=== PATIENT | male | born 1985 | race Caucasian/White ===

== ENCOUNTER 2017-10-04 15:24 | Emergency (ER) | payer OTHER ==
[2017-10-04 15:31] VITALS: O2SAT 98
--- NOTE | 2017-10-04 15:34 | C.PDOC ---
History Of Present Illness 31 yo male come in for evaluation of Right sided lower back/buttock pain gradually developed for past 2 weeks " after was lifting heavy objects". Pt reports, pain is constant, aching with radiating down to Right leg. Pt admits, was seen by PMD 1 week ago, taking Meloxicam, topical cream without improvement. Pt also reports, some suprapubic discomfort, subjective fever. Otherwise, pt denies high fever, sore throat, drooling, dysphagia, dyspnea, cough, abd. pain, N/V/D, UTI sx, denies weakness, sensory or vascular deficits to B/L LEs. Ambulate to ED w/assistance of cane, appears in pain. Time Seen by Provider: 10/04/17 15:31 Chief Complaint (Nursing): Lower Extremity Problem/Injury History Per: Patient Onset/Duration Of Symptoms: Gradual Past Medical History Reviewed: Historical Data, Nursing Documentation, Vital Signs Vital Signs: Last Vital Signs Temp 99 F 10/04/17 17:50 Pulse 76 10/04/17 17:50 Resp 18 10/04/17 17:50 BP 118/71 10/04/17 17:50 Pulse Ox 98 10/04/17 17:50 - Medical History PMH: No Chronic Diseases Family History: States: No Known Family Hx - Social History Hx Tobacco Use: Yes Hx Alcohol Use: No Hx Substance Use: No - Immunization History Hx Tetanus Toxoid Vaccination: No Hx Influenza Vaccination: No Hx Pneumococcal Vaccination: No Review Of Systems Except As Marked, All Systems Reviewed And Found Negative. Constitutional: Positive for: Fever (subjective) ENT: Negative for: Throat Pain, Throat Swelling Cardiovascular: Negative for: Chest Pain, Palpitations Respiratory: Negative for: Cough, Shortness of Breath, Wheezing Gastrointestinal: Negative for: Nausea, Vomiting, Abdominal Pain, Diarrhea Genitourinary: Negative for: Dysuria, Incontinence, Penile Discharge, Penile Pain Musculoskeletal: Positive for: Back Pain Skin: Negative for: Lesions, Bruising Neurological: Negative for: Weakness, Numbness, Headache, Dizziness Physical Exam - Physical Exam Appears: Well, Non-toxic, No Acute Distress Skin: Normal Color, Warm, Dry, No Rash Head: Normacephalic Eye(s): bilateral: PERRL Nose: No Flaring, No Discharge Oral Mucosa: Moist, No Drooling Throat: No Erythema, No Drooling Neck: Normal ROM, Trachea Midline, Supple Cardiovascular: Rhythm Regular, No Murmur, No JVD Respiratory: No Decreased Breath Sounds, No Accessory Muscle Use, No Stridor, No Wheezing Gastrointestinal/Abdominal: Soft, Tenderness (mild suprapubic), No Distention, No Guarding, No Rebound Back: No CVA Tenderness, No Vertebral Tenderness, Paraspinal Tenderness ( diffuse right lumbar and right gluteal tenderness. No skin changes, no palpable deformity.), Straight Leg Raising (Right leg (+) at 30 degrees, Left leg (+) at 70 degrees) Extremity: Normal ROM, No Tenderness, No Calf Tenderness, No Deformity, No Swelling Neurological/Psych: Oriented x3, Normal Speech, Normal Motor, Normal Sensation, Normal Reflexes ED Course And Treatment - Laboratory Results Result Diagrams: 10/04/17 15:55 10/04/17 15:55 Lab Interpretation: Normal O2 Sat by Pulse Oximetry: 98 Pulse Ox Interpretation: Normal Progress Note: On re-eval, pt is afebrile, hemodynamically stable. Non-toxic. Ambulatory in ED with stable gait. PulseOx 98% on RA. ENT: no acute findings. Neck: Supple, (-) JVD, (-) carotid bruits B/L. Lungs: CTA B/L, BS equal B/L. Abd: benign, (-) guarding, (-) rebound. Back: (-) CVA tenderness. Neurologically intact. Blood work review and appears normal. UA review (-). Patient has clinical findings c/w Right lumbar radiculopathy/sciatica. Pt advised and ref. to F/U with PMD In 2-3 days for re-eval. return to ED if any worsening or new changes. Disposition Counseled Patient/Family Regarding: Studies Performed, Diagnosis, Need For Followup, Rx Given - Disposition Referrals: [facility] [Outside] [facility] [Provider Group] [facility] [Provider Group] Ugo Underwood MD [Staff Provider] - Disposition: HOME/ ROUTINE Disposition Time: 17:12 Condition: STABLE Additional Instructions: Take medication as prescribed Light duty to lower back, avoid heavy lifting, bending forward, etc for 1-2 weeks Follow up with PMD, Pain management for further evaluation and treatment return to ED if any worsening or new changes. Prescriptions: Gabapentin [Neurontin] 300 mg PO HS #10 cap Methocarbamol [Robaxin] 500 mg PO TID #14 tab Prednisone [Deltasone] 40 mg PO DAILY #6 tablet Instructions: Sciatica, Radiculopathy Forms: [facility] (German) - Clinical Impression Clinical Impression: Lumbar radiculopathy, Sciatica
[2017-10-04] MEDS ORDERED: Sodium Chloride 0.9% 1,000 ML IV ONE (15:39)
[2017-10-04] MEDS ORDERED: Morphine 4 MG/ML VIAL ONE (15:57)
[2017-10-04 16:00] LABS: BASO # 0.1 K/uL (0.0-0.2); BASO % 0.6 % (0.0-2.0); EOS # 0.1 K/uL (0.0-0.7); EOS % 1.1 % (0.0-4.0); HEMOGLOBIN 14.4 g/dL (12.0-18.0); LYMPH % 19.9 % (20.0-40.0); MEAN CELL VOLUME 80.3 fL (80.0-94.0); MEAN CORPUSCULAR HEMOGLOBIN 26.9 pg (27.0-31.0); MEAN CORPUSCULAR HGB CONC 33.6 g/dL (33.0-37.0); MEAN PLATELET VOLUME 7.6 fL (7.2-11.7); MONO # 0.9 K/uL (0.0-0.8); MONO % 8.3 % (0.0-10.0); NEUT # 7.2 K/uL (1.8-7.0); NEUT % 70.1 % (50.0-75.0); NRBC % 0.1 % (0.0-2.0); RBC 5.33 Mil/uL (4.40-5.90); RED CELL DISTRIBUTION WIDTH 14.2 % (11.5-14.5); WHITE BLOOD COUNT 10.3 K/uL (4.8-10.8)
[2017-10-04 16:13] LABS: ALB/GLOB RATIO 1.1 (1.0-2.1); ALBUMIN 3.9 g/dL (3.5-5.0); ALT/SGPT 42 U/L (21-72); AST/SGOT 37 U/L (17-59); BLOOD UREA NITROGEN 13 mg/dL (9-20); GFR AFRICAN-AMERICAN > 60; GFR NON-AFRICAN AMERICAN > 60; LIPASE 32 U/L (23-300)
[2017-10-04 17:42] LABS: SQUAMOUS EPITHIAL < 1 /hpf (0-5); URINE BILIRUBIN NEGATIVE (NEGATIVE); URINE BLOOD NEGATIVE (NEGATIVE); URINE CLARITY Clear (Clear); URINE COLOR Yellow (YELLOW); URINE GLUCOSE (UA) NORMAL (Normal); URINE LEUKOCYTE ESTERASE NEG Leu/uL (Negative); URINE PROTEIN NEGATIVE (NEGATIVE)
[2017-10-04 17:51] VITALS: BP 118/71; PULSE 76; RESP 18; TEMP 99
== END 2017-10-04 18:10 | disposition home or self-care (01) ==
LOC: C.ER 15:24
DX: M54.16 Radiculopathy, lumbar region (principal); M54.31 Sciatica, right side
CPT/HCPCS: 80053; 81001; 83690; 85025; 96361; 96374; 96375; 99283; J2270; J2930; J7030

== ENCOUNTER 2017-10-13 09:33 | Emergency (ER) | payer OTHER ==
[2017-10-13 09:50] VITALS: BP 129/76; PULSE 90; RESP 16; TEMP 98; O2SAT 99
--- NOTE | 2017-10-13 12:01 | C.PDOC ---
History Of Present Illness 31 year old male patient presents to the ER with c/o back pain for a little more than x1 week. Patient was last seen in the ER last week for the same complaint after injury. Patient reports pain is worse today. Patient notes he has a f/u with worker compensation doctor scheduled today. Patient denies bladder pain or leg pain. Time Seen by Provider: 10/13/17 09:51 Chief Complaint (Nursing): Back Pain History Per: Patient History/Exam Limitations: no limitations Onset/Duration Of Symptoms: Days (x1.5 weeks) Current Symptoms Are (Timing): Still Present Previous Symptoms: Back Pain Past Medical History Reviewed: Historical Data, Nursing Documentation, Vital Signs Vital Signs: Last Vital Signs Temp 98 F 10/13/17 09:48 Pulse 90 10/13/17 09:48 Resp 16 10/13/17 09:48 BP 129/76 10/13/17 09:48 Pulse Ox 99 10/13/17 18:39 Family History: States: No Known Family Hx - Social History Hx Tobacco Use: Yes Hx Alcohol Use: No Hx Substance Use: No - Immunization History Hx Tetanus Toxoid Vaccination: No Hx Influenza Vaccination: No Hx Pneumococcal Vaccination: No Review Of Systems Except As Marked, All Systems Reviewed And Found Negative. Genitourinary: Negative for: Other (bladder pain) Musculoskeletal: Positive for: Back Pain Physical Exam - Physical Exam Appears: Well, Non-toxic, No Acute Distress Skin: Normal Color, Warm, Dry Head: Atraumatic, Normacephalic Cardiovascular: Rhythm Regular Respiratory: Normal Breath Sounds Back: No CVA Tenderness, No Vertebral Tenderness, No Paraspinal Tenderness, Other (diffuse lower back pain ) Extremity: Normal ROM (x4) Neurological/Psych: Oriented x3, Normal Speech, Normal Motor, Normal Sensation, Normal Reflexes Gait: Steady ED Course And Treatment O2 Sat by Pulse Oximetry: 99 (RA) Pulse Ox Interpretation: Normal - Other Rad LS spine XR X-Ray: Read By Radiologist Interpretation: Accession No. : [id number]. Patient Name / ID : RAHEEM BLANCA / [id number]. Exam Date : 10/13/2017 10:19:15 ( Approved ). Study Comment : Sex / Age : M / [id number]. Creator : Tl Heredia MD. Dictator : Tl Heredia MD. Lead Handler : Parts Counterman : Tl Heredia MD. Approver2 : Report Date : 10/13/2017 12:53:50. My Comment : . Date of service: 10/13/2017. PROCEDURE: Radiographs of the Lumbar Spine. HISTORY: r /o fx. COMPARISON: No prior. FINDINGS: BONES: Mild levoscoliosis. . No listhesis. No fracture. DISC SPACES: Unremarkable. OTHER FINDINGS: None. IMPRESSION: No acute findings related to/accounting for the clinical presentation. Additional benign and/or incidental findings described above. Medical Decision Making Medical Decision Making: Impression: lower back pain Plans: -- XR lumbar spine Reassess: Patient is resting comfortably. Patient is instructed to f/u with worker compensation doctor that is scheduled today. Information for clinic for outpatient concern is given. Prescription is also given to patient. Disposition - Disposition Referrals: [facility] [Outside] [facility] [Outside] Disposition: HOME/ ROUTINE Disposition Time: 10:50 Condition: GOOD Additional Instructions: RIANNA MACIEL, thank you for letting us take care of you today. The emergency medical care you received today was directed at your acute symptoms. If you were prescribed any medication, please fill it and take as directed. It may take several days for your symptoms to resolve. Return to the Emergency Department if your symptoms worsen, do not improve, or if you have any other problems. Please contact your doctor or call one of the physicians/clinics you have been referred to that are listed on the Patient Visit Information form that is included in your discharge packet. Bring any paperwork you were given at discharge with you along with any medications you are taking to your follow up visit. Our treatment cannot replace ongoing medical care by a primary care provider outside of the emergency department. Thank you for allowing the [facility] team to be part of your care today. Follow up with the Workman's [employer]. medical office as scheduled. In addition, you can follow up with the clinic this week for further management. Prescriptions: traMADol [Ultram] 50 mg PO Q8 PRN #15 tab PRN Reason: Pain, Severe (8-10) Instructions: Low Back Pain (DC) Forms: [facility] ([place] Citizen) - Clinical Impression Clinical Impression: Low back pain - Scribe Statement The provider has reviewed the documentation as recorded by the Aleksandr Nicholson Do Provider Attestation: All medical record entries made by the Scribe were at my direction and personally dictated by me. I have reviewed the chart and agree that the record accurately reflects my personal performance of the history, physical exam, medical decision making, and the department course for this patient. I have also personally directed, reviewed, and agree with the discharge instructions and disposition.
--- NOTE | 2017-10-13 12:55 | RAD ---
Date of service: 10/13/2017 PROCEDURE: Radiographs of the Lumbar Spine. HISTORY: r/o fx COMPARISON: No prior. FINDINGS: BONES: Mild levoscoliosis. . No listhesis. No fracture. DISC SPACES: Unremarkable. OTHER FINDINGS: None. IMPRESSION: No acute findings related to/accounting for the clinical presentation. Additional benign and/or incidental findings described above.
== END 2017-10-13 13:08 | disposition home or self-care (01) ==
LOC: C.ER 09:33
DX: M54.5 Low back pain (principal); Z72.0 Tobacco use